=== PATIENT | female | born 1940 | race Caucasian/White ===

== ENCOUNTER 2021-04-12 07:52 | Day surgery (SDC) | payer MEDICARE, BC ==
[2021-04-12] VITALS (11 sets, daily range): BP systolic 113–161; BP diastolic 62–92
[~2021-04-12] VITALS: Ht 157.5 cm; Wt 75.7 kg
[2021-04-12] MEDS ORDERED: diphenhydrAMINE 25mg capsule PO PRN (08:25)
[2021-04-12] MEDS ORDERED: normal saline 1,000 ML IV SCH ×2 (08:25→13:10)
[2021-04-12] MEDS ORDERED: HYDR-3973 PO (09:04)
[2021-04-12] MEDS ORDERED: IBUP-1985 PO (09:04)
[2021-04-12] MEDS ORDERED: ANAS1TAB10 PO (09:04)
[2021-04-12] MEDS ORDERED: CHOL10006 PO (09:04)
[2021-04-12] MEDS ORDERED: GABA-534 PO (09:04)
[2021-04-12] MEDS ORDERED: SERT-434 PO (09:04)
[2021-04-12] MEDS ORDERED: ASPI-845 PO (09:04)
[2021-04-12] MEDS ORDERED: DENO60DI SUBCUT (09:04)
[2021-04-12] MEDS ORDERED: MULT-1074 PO (09:04)
[2021-04-12] MEDS ORDERED: ATOR40TA72 PO (09:04)
[2021-04-12] MEDS ORDERED: CLOP75TA34 PO (09:04)
[2021-04-12 09:06] LABS: BASOPHILS % (AUTO) 0.5 % (0-1); EOSINOPHILS # (AUTO) 0.1 X10'3 (0-0.9); EOSINOPHILS % (AUTO) 1.8 % (0-6); HEMATOCRIT 36.2 % (35.0-45.0); HEMOGLOBIN 12.1 g/dl (12.0-16.0); LYMPHOCYTES # (AUTO) 1.4 X10'3 (1.1-4.8); LYMPHOCYTES % (AUTO) 22.7 % (21-51); MEAN CORPUSCULAR HEMOGLOBIN 31.3 PG (27.0-31.0); MEAN CORPUSCULAR HGB CONC 33.5 g/dL (33.0-36.5); MEAN CORPUSCULAR VOLUME 93.4 FL (78-98); MEAN PLATELET VOLUME 7.3 FL (7.4-10.4); MONOCYTES # (AUTO) 0.4 X10'3 (0-0.9); MONOCYTES % (AUTO) 6.1 % (2-12); NEUTROPHILS # (AUTO) 4.2 X10'3 (1.8-7.7); NEUTROPHILS % (AUTO) 68.9 % (42-75); PLATELET COUNT 328 X10'3 (140-440); RED BLOOD COUNT 3.88 X10'6 (4.20-5.60); WHITE BLOOD COUNT 6.2 X10'3 (4.5-11.0)
[2021-04-12 09:23] LABS: ALBUMIN 3.5 G/DL (3.4-5.0); ANION GAP 10 (8-16); BLOOD UREA NITROGEN 22 MG/DL (7-18); BUN/CREATININE RATIO 22.2 (6.6-38.0); CALCIUM 8.7 MG/DL (8.5-10.1); CHLORIDE 111 MMOL/L (99-107); CREATININE 0.99 MG/DL (0.40-0.90); GLUCOSE 106 MG/DL (70-104); MAGNESIUM 1.9 MG/DL (1.5-2.4); SODIUM 144 MMOL/L (135-145); TOTAL CARBON DIOXIDE 22.9 MMOL/L (24-32); eGFR 54 ML/MIN
[2021-04-12] MEDS ORDERED: fentaNYL/PF 50MCG/1 ML 2ML syringe ONE ×2 (09:50→11:17)
[2021-04-12] MEDS ORDERED: midazolam 1 mg/ML 2ml injection ONE ×2 (09:50→11:17)
[2021-04-12] MEDS ORDERED: LIDOcaine 1% (10mg/ml)w/preservative injection 20ml MDV ONE (09:50)
[2021-04-12] MEDS ORDERED: iohexol 350 MG/ML 50ML vial IV ONE (09:51)
[2021-04-12] MEDS ORDERED: heparin 1,000unit/ml 10ml vial 10 ML ONE (09:51)
[2021-04-12] MEDS ORDERED: iohexol 350MG/ML 100ml bottle IV ONE (09:51)
[2021-04-12] MEDS ORDERED: iohexol 350 MG/1 ML 200ml bottle ONE (11:11)
[2021-04-12] MEDS ORDERED: nitroGLYCERIN-Tridil 50MG/D5W 250 ML IV ONE (11:19)
[2021-04-12] MEDS ORDERED: clopidogrel 300mg tablet ONE (12:03)
[2021-04-12] MEDS ORDERED: HYDROmorphone 1 mg/ml syringe ONE (12:10)
[2021-04-12] MEDS ORDERED: HYDROcodone/acetaminophen 5mg/325mg tablet PO PRN (13:05)
[2021-04-12] MEDS ORDERED: normal saline 1000ml 1,000 ML IV SCH (13:05)
[2021-04-12] MEDS ORDERED: HYDROcodone/acetaminophen 10/325mg tab PO PRN (13:05)
[2021-04-12] MEDS ORDERED: ondansetron/PF 4mg/2ml inj IV PRN (13:05)
[2021-04-12] MEDS ORDERED: proCHLORperazine 10 MG/2 ml inj IV PRN (13:05)
== END 2021-04-12 16:05 | disposition home or self-care (01) ==
LOC: SSTAY O 07:52
PROVIDERS: ATTEND Internal Medicine Cardiovascular Disease
DX: R94.39 Abnormal result of other cardiovascular function study (principal); I25.10 Atherosclerotic heart disease of native coronary artery without angina pectoris; E78.5 Hyperlipidemia, unspecified; F32.9 Major depressive disorder, single episode, unspecified; G89.4 Chronic pain syndrome; Z85.3 Personal history of malignant neoplasm of breast; Z95.0 Presence of cardiac pacemaker; Z79.899 Other long term (current) drug therapy; Z90.710 Acquired absence of both cervix and uterus; Z98.890 Other specified postprocedural states; Z90.721 Acquired absence of ovaries, unilateral; Z87.891 Personal history of nicotine dependence; Z72.89 Other problems related to lifestyle; Z88.8 Allergy status to other drugs, medicaments and biological substances; Z79.82 Long term (current) use of aspirin; Z79.01 Long term (current) use of anticoagulants; Z86.73 Personal history of transient ischemic attack (TIA), and cerebral infarction without residual deficits; Z82.49 Family history of ischemic heart disease and other diseases of the circulatory system
CPT/HCPCS: 36415; 80048; 83735; 85025; 85610; 93005; 93458; 93571; 99152; 99153; C1725; C1751; C1760; C1769; C1874; C1894; C9600; J1170; J1644; J2001; J2250; J3010; J7030; Q0163; Q9967; A4620; A6258; J3490